=== PATIENT | female | born 1975 | race Caucasian/White ===

== ENCOUNTER 2017-12-28 13:37 | Emergency (ER) | payer OTHER, MEDICAID, SELFPAY ==
[2017-12-28 13:47] VITALS: BP 162/93; PULSE 107; RESP 19; TEMP 36.7; O2SAT 96; BMI 35.2
--- NOTE | 2017-12-28 14:23 | ED.ABDPAIN ---
HPI - Abdominal Pain <Tania ClayLUDIN sosaP-BC - Last Filed: 12/28/17 19:07> General Chief Complaint: Abdominal Pain Stated Complaint: diarrhea, N/V Time Seen by Provider: 12/28/17 13:53 Source: patient Mode of arrival: ambulatory Limitations: no limitations History of Present Illness HPI narrative: Patient presents with chief complaint of abdominal pain, vomiting, diarrhea. She states she has Crohn's disease not her Crohn's is acting up. She states she has had several episodes of watery diarrhea today. She states she was seen at would be last week where she was prescribed oxycodone. She states that it was not enough. She has not followed up with her primary care doctor or her GI doctor at this point time. She denies fevers, cough, congestion chest pain or shortness of breath. She denies fevers. She states that this pain is consistent with her Crohn's disease. She denies urinary symptoms, denies flank pain. She states that she was seen at an outside facility approximately 7 days ago. Related Data Previous Rx's Medication Instructions Recorded oxycodone-acetaminophen [Percocet] 2 tab PO Q4-6H PRN #10 tab 12/28/17 Allergies Allergy/AdvReac Type Severity Reaction Status Date / Time clarithromycin Allergy Severe RASH Unverified 08/27/17 12:21 [CLARITHROMYCIN] gentamicin [GENTAMICIN] Allergy Severe ANAPHYLAXIS Unverified 08/27/17 12:21 ketorolac [KETOROLAC] Allergy Severe RASH Unverified 08/27/17 12:21 Penicillins [PENICILLINS] Allergy Severe ANAPHYLAXIS Unverified 08/27/17 12:21 Sulfa (Sulfonamide Allergy Severe HIVES Unverified 08/27/17 12:21 Antibiotics) [SULFA (SULFONAMIDE ANTIBIOTICS)] vancomycin [VANCOMYCIN] Allergy Severe ANAPHYLAXIS Unverified 08/27/17 12:21 venom-honey bee Allergy Severe ANAPHYLAXIS Unverified 08/27/17 12:21 [BEE VENOM (HONEY BEE)] Iodinated Contrast- Oral and Allergy Intermediate ITCHING Unverified 08/27/17 12:21 IV Dye [IODINATED CONTRAST MEDIA - IV DYE] nicotine [NICOTINE] Allergy Unknown ITCHING Unverified 08/27/17 12:21 ALL OVER, BURNING AT SITE OF PATCH morphine [MORPHINE] AdvReac Intermediate nasuea Unverified 08/27/17 12:21 bioxen Allergy Severe Uncoded 08/27/17 12:21 Review of Systems <Tania FACUNDO Boles-BC - Last Filed: 12/28/17 19:07> Review of Systems GENERAL: Denies chills, fatigue, malaise, fever, sweats. HEENT: Denies sinus pain, ear pain, sore throat, difficulty swallowing, dizziness. RESPIRATORY: Denies dyspnea, cough, wheezing, hemoptysis, sputum. CARDIOVASCULAR: Denies chest pain, palpitations, orthopnea, edema, GASTROINTESTINAL: See HPI : Denies dysuria, frequency, incontinence, hematuria, urinary retention. MUSCULOSKELETAL: denies weakness, joint pain, or bony pain SKIN: Denies rash, skin lesions, or other NEUROLOGIC: Denies weakness, headache, numbness, change in speech, confusion, seizures, incoordination. PSYCHIATRIC: No concerning psychosocial issues. 12 point review of systems is negative except for those stated above Exam <FACUNDO Titus-BC - Last Filed: 12/28/17 19:07> Narrative Exam Narrative: GENERAL: Obese patient lying on stretcher. HEAD: Atraumatic. Normocephalic. No temporal or scalp tenderness. EYES: Pupils equal round and reactive. Extraocular motions intact. No scleral icterus. No injection or drainage. ENT: Nose without bleeding, purulent drainage or septal hematoma. Throat without erythema, tonsillar hypertrophy or exudate. Uvula midline. Airway patent. NECK: Trachea midline. No JVD or lymphadenopathy. Supple, nontender, no meningeal signs. CARDIOVASCULAR: Regular rate and rhythm without murmurs, gallops, or rubs. RESPIRATORY: Clear to auscultation. Breath sounds equal bilaterally. No wheezes, rales, or rhonchi. GASTROINTESTINAL: Abdomen obese. Positive bowel sounds all quadrants. No guarding, abdomen nonrigid. Patient has diffuse pain to palpation over entire abdomen. No CVA tenderness bilaterally. No pain at McBurney's point. No pulsatile mass palpated. EXTREMITIES: No clubbing, cyanosis, or edema. No joint tenderness, effusion, or edema noted. BACK: Nontender without deformity or crepitance. No flank tenderness. NEURO: AOx3. SKIN: No rash or erythema. Initial Vital Signs Initial Vital Signs: Vital Signs Temperature 98.0 F 12/28/17 13:47 Pulse Rate 107 H 12/28/17 13:47 Respiratory Rate 19 12/28/17 13:47 Blood Pressure 162/93 H 12/28/17 13:47 Pulse Oximetry 96 12/28/17 13:47 <Narendra Pelletier DO - Last Filed: 12/29/17 09:27> Initial Vital Signs Initial Vital Signs: Vital Signs Temperature 98.0 F 12/28/17 13:47 Pulse Rate 107 H 12/28/17 13:47 Respiratory Rate 19 12/28/17 13:47 Blood Pressure 162/93 H 12/28/17 13:47 Pulse Oximetry 96 12/28/17 13:47 Course <FACUNDO Titus-BC - Last Filed: 12/28/17 19:07> Additional Information: Records were obtained from [facility] which illustrate that the patient was seen there 2 days ago rather than 7 days ago. She was discharged from there with 15 of Percocet. I went back in and she remembered that she had a more recent visit than the previous week. She states that she has used all the Percocet from her visit 2 days ago, but she has plenty of nausea medication that works well for her. She has not followed up with her primary care physician or a GI physician. She states she was seen by pain management, who states she should be on a fentanyl patch. Patient does not want a CT scan today, as she states she has ?had plenty. Orders Ordered: Discontinued Medications Hydromorphone HCl (Dilaudid) 0.5 mg IV NOW ONE Stop: 12/28/17 14:52 Last Admin: 12/28/17 15:01 Dose: 0.5 mg Sodium Chloride (Normal Saline 0.9%) 1,000 mls @ 150 mls/hr IV CONT CAROL Last Infusion: 12/28/17 16:23 Dose: 150 mls/hr Infusion: 12/28/17 16:21 Dose: 0 mls/hr Admin: 12/28/17 15:01 Dose: 150 mls/hr Ondansetron HCl (Zofran) 4 mg IV NOW ONE Stop: 12/28/17 14:39 Last Admin: 12/28/17 15:01 Dose: 4 mg Ondansetron HCl (Zofran) 4 mg IV NOW ONE Stop: 12/28/17 15:46 Last Admin: 12/28/17 15:55 Dose: 4 mg Oxycodone/Acetaminophen (Percocet 5/325) 2 tab PO NOW ONE Stop: 12/28/17 15:41 Last Admin: 12/28/17 15:54 Dose: 2 tab Vital Signs - 8 hr 12/28/17 13:47 12/28/17 14:55 12/28/17 16:00 Temperature 98.0 F 97.5 F L 97.6 F Pulse Rate 107 H 97 H 97 H Respiratory Rate 19 20 16 Blood Pressure 162/93 H Blood Pressure [Left Wrist] 131/95 H 137/96 H Pulse Oximetry 96 96 96 <Narendra Pelletier DO - Last Filed: 12/29/17 09:27> Orders Ordered: Discontinued Medications Hydromorphone HCl (Dilaudid) 0.5 mg IV NOW ONE Stop: 12/28/17 14:52 Last Admin: 12/28/17 15:01 Dose: 0.5 mg Sodium Chloride (Normal Saline 0.9%) 1,000 mls @ 150 mls/hr IV CONT CAROL Last Infusion: 12/28/17 16:23 Dose: 150 mls/hr Infusion: 12/28/17 16:21 Dose: 0 mls/hr Admin: 12/28/17 15:01 Dose: 150 mls/hr Ondansetron HCl (Zofran) 4 mg IV NOW ONE Stop: 12/28/17 14:39 Last Admin: 12/28/17 15:01 Dose: 4 mg Ondansetron HCl (Zofran) 4 mg IV NOW ONE Stop: 12/28/17 15:46 Last Admin: 12/28/17 15:55 Dose: 4 mg Oxycodone/Acetaminophen (Percocet 5/325) 2 tab PO NOW ONE Stop: 12/28/17 15:41 Last Admin: 12/28/17 15:54 Dose: 2 tab Vital Signs - 8 hr 12/28/17 13:47 12/28/17 14:55 12/28/17 16:00 Temperature 98.0 F 97.5 F L 97.6 F Pulse Rate 107 H 97 H 97 H Respiratory Rate 19 20 16 Blood Pressure 162/93 H Blood Pressure [Left Wrist] 131/95 H 137/96 H Pulse Oximetry 96 96 96 MDM - Abdominal Pain <Tania Boles, RESEARCH INSTRUMENTATION TECHNICIAN-BC - Last Filed: 12/28/17 19:07> Lab Data Result diagrams: 12/28/17 13:55 12/28/17 13:55 Lab Results 12/28/17 12/28/17 12/28/17 Range/Units 13:55 13:55 14:20 WBC 11.1 H (4.5-11.0) X10^3/uL RBC 4.78 (4.0-5.2) X10^6/uL Hgb 14.2 (12.0-16.0) g/dL Hct 42.2 (36-46) % MCV 88.2 (80-100) fL MCH 29.7 (26-34) PG MCHC 33.6 (30-36) % RDW 14.5 (11.6-14.8) % Plt Count 278 (150-400) X10^3/uL Neut % (Auto) 90.1 H (50-75) % Lymph % (Auto) 7.8 L (25-40) % Fisher % (Auto) 1.5 L (3-14) % Eos % (Auto) 0.3 L (2-4) % Baso % (Auto) 0.3 (0-2) % Neut # (Auto) 06536 H (1171-3900) /uL Sodium 140 (137-145) mmol/L Potassium 4.4 (3.4-5.1) mmol/L Chloride 105 (98-107) mmol/L Carbon Dioxide 24 (22-32) mmol/L BUN 15 (7-17) mg/dL Creatinine 1.00 (0.52-1.04) mg/dL Estimated GFR > 60.0 (>60) mL/min BUN/Creatinine Ratio 15.0 (6-22) Glucose 133 H (70-100) mg/dL Calcium 10.0 (8.4-10.2) mg/dL Total Bilirubin 0.3 (0.2-1.3) mg/dL AST 34 (14-36) IU/L ALT 56 H (9-52) IU/L Alkaline Phosphatase 114 (38-126) U/L Total Protein 7.4 (6.3-8.2) g/dL Albumin 4.3 (3.5-5.0) g/dL Globulin 3.1 (1.7-4.1) g/dL Albumin/Globulin Ratio 1.4 (1.0-2.8) Lipase 43 (23-300) U/L Urine RBC None seen (0-5/HPF) Urine WBC 1-5/hpf (0-5/HPF) Ur Squamous Epith Cells 5-10 /hpf H Amorphous Sediment 1+ Urine Bacteria Occasional (0-1) (None) Ur Culture Indicated? Cult not indicated Micro UA Comment Not Reportable Point of care testing: Urine Dip Bedside Urine Glucose Negative Bedside Urine Bilirubin - Negative Bedside Urine Ketone - Negative Urine Specific [place] 1.020 Bedside Urine Occult Blood - Negative Bedside Urine pH 6.0 Bedside Urine Protein - Negative Bedside Urine Urobilinogen - Negative Bedside Urine Nitrite - Negative Bedside Urine Leukocytes +/- 15 Esterase MDM Narrative Medical decision making narrative: Patient presents with chief complaint of abdominal pain, vomiting and diarrhea that she believes is due to her Crohn's disease. Patient does not want imaging done today, and does not have an acute abdomen given her exam. She was given fluids, nausea medication and pain medication the emergency department. I gave her a small prescription for pain medication in order for her to follow up with her primary care physician or her GI physician. Patient expressed gratitude and had no questions or concerns upon discharge from the emergency department today. <Narendra Pelletier, DO - Last Filed: 12/29/17 09:27> Lab Data Lab Results 12/28/17 12/28/17 12/28/17 Range/Units 13:55 13:55 14:20 WBC 11.1 H (4.5-11.0) X10^3/uL RBC 4.78 (4.0-5.2) X10^6/uL Hgb 14.2 (12.0-16.0) g/dL Hct 42.2 (36-46) % MCV 88.2 (80-100) fL MCH 29.7 (26-34) PG MCHC 33.6 (30-36) % RDW 14.5 (11.6-14.8) % Plt Count 278 (150-400) X10^3/uL Neut % (Auto) 90.1 H (50-75) % Lymph % (Auto) 7.8 L (25-40) % Fisher % (Auto) 1.5 L (3-14) % Eos % (Auto) 0.3 L (2-4) % Baso % (Auto) 0.3 (0-2) % Neut # (Auto) 90500 H (0460-4095) /uL Sodium 140 (137-145) mmol/L Potassium 4.4 (3.4-5.1) mmol/L Chloride 105 (98-107) mmol/L Carbon Dioxide 24 (22-32) mmol/L BUN 15 (7-17) mg/dL Creatinine 1.00 (0.52-1.04) mg/dL Estimated GFR > 60.0 (>60) mL/min BUN/Creatinine Ratio 15.0 (6-22) Glucose 133 H (70-100) mg/dL Calcium 10.0 (8.4-10.2) mg/dL Total Bilirubin 0.3 (0.2-1.3) mg/dL AST 34 (14-36) IU/L ALT 56 H (9-52) IU/L Alkaline Phosphatase 114 (38-126) U/L Total Protein 7.4 (6.3-8.2) g/dL Albumin 4.3 (3.5-5.0) g/dL Globulin 3.1 (1.7-4.1) g/dL Albumin/Globulin Ratio 1.4 (1.0-2.8) Lipase 43 (23-300) U/L Urine RBC None seen (0-5/HPF) Urine WBC 1-5/hpf (0-5/HPF) Ur Squamous Epith Cells 5-10 /hpf H Amorphous Sediment 1+ Urine Bacteria Occasional (0-1) (None) Ur Culture Indicated? Cult not indicated Micro UA Comment Not Reportable Point of care testing: Urine Dip Bedside Urine Glucose Negative Bedside Urine Bilirubin - Negative Bedside Urine Ketone - Negative Urine Specific [place] 1.020 Bedside Urine Occult Blood - Negative Bedside Urine pH 6.0 Bedside Urine Protein - Negative Bedside Urine Urobilinogen - Negative Bedside Urine Nitrite - Negative Bedside Urine Leukocytes +/- 15 Esterase Discharge Plan Departure Patient Disposition: Home, Self-Care Clinical Impression: Abdominal pain Discharge Date/Time: 12/28/17 16:20 Interventions: ED Discharge Assessment Last Done: 12/28/17 16:19 Instructions: DI for Abdominal Pain-Adult Activity Restrictions/Additional Instructions: I have given you a small prescription for Percocet. Please follow-up with your primary care provider or GI provider. Come back to the emergency department for any chest pain, shortness of breath, passing out or urgent matters. I would like you to push hydration. Your lab work and urine looks good today. Prescriptions: New oxycodone-acetaminophen [Percocet] 5-325 mg tablet 2 tab PO Q4-6H PRN (Reason: pain) Qty: 10 RF: 0 <Narendra Pelletier DO - Last Filed: 12/29/17 09:27> [facility] Attending Delfin Attestation: I was immediately available in the department for consultation. Documentation has been reviewed. I agree with assessment and plan.
[2017-12-28 14:24] LABS: Add Manual Diff / Slide Review NO; Basophils Percent Auto 0.3 % (0-2); Eosinophils Percent Auto 0.3 % (2-4); Hematocrit 42.2 % (36-46); Hemoglobin 14.2 g/dL (12.0-16.0); Lymphocytes Percent Auto 7.8 % (25-40); Mean Corpuscular HGB Conc 33.6 % (30-36); Mean Corpuscular Hemoglobin 29.7 PG (26-34); Mean Corpuscular Volume 88.2 fL (80-100); Monocytes Percent Auto 1.5 % (3-14); Neutrophils Absolute Auto 10100 /uL (3000-5900); Neutrophils Percent Auto 90.1 % (50-75); Platelet Count 278 X10^3/uL (150-400); Red Blood Cell Count 4.78 X10^6/uL (4.0-5.2); Red Cell Distribution Width 14.5 % (11.6-14.8); White Blood Cell Count 11.1 X10^3/uL (4.5-11.0)
[2017-12-28 14:28] LABS: Alanine Aminotransferase 56 IU/L (9-52); Albumin 4.3 g/dL (3.5-5.0); Albumin Globulin Ratio 1.4 (1.0-2.8); Alkaline Phosphatase 114 U/L (38-126); Aspartate Aminotransferase 34 IU/L (14-36); Bilirubin Total 0.3 mg/dL (0.2-1.3); Blood Urea Nitrogen 15 mg/dL (7-17); Carbon Dioxide 24 mmol/L (22-32); Chloride 105 mmol/L (98-107); Estimated Glomerular Filt Rate > 60.0 mL/min (>60); Globulin 3.1 g/dL (1.7-4.1); Glucose 133 mg/dL (70-100); HEMOLYSIS < 15 (0-50); Lipase 43 U/L (23-300); Potassium 4.4 mmol/L (3.4-5.1); Sodium 140 mmol/L (137-145); Total Protein 7.4 g/dL (6.3-8.2)
[2017-12-28 14:55] VITALS: BP 131/95; PULSE 97; RESP 20; TEMP 36.4; O2SAT 96
[2017-12-28] MEDS: ONDANSETRON 4 MG/2 ML INJ IV ×2 (15:01→15:55)
[2017-12-28] MEDS: HYDROMORPHONE 1 MG INJ 0.5 MG IV (15:01)
[2017-12-28] MEDS: SODIUM CHLORIDE 0.9% 1,000 ML 150 ML IV (15:01)
[2017-12-28 15:13] LABS: RBC Urine None Seen (0-5/HPF); WBC Urine 1-5/HPF (0-5/HPF)
[2017-12-28 15:14] LABS: Amorphous Sediment Urine 1+; Bacteria Urine Occasional (0-1); Culture Indicated Urine Cult Not Indicated; Squamous Epithelial Cell Urine 5-10 /HPF
[2017-12-28] MEDS: OXYCODONE/ACETAMINOPHEN 5/325 TABLET 2 TAB PO (15:54)
[2017-12-28 16:00] VITALS: BP 137/96; PULSE 97; RESP 16; TEMP 36.4; O2SAT 96
== END 2017-12-28 16:20 | disposition home or self-care (01) ==
PROVIDERS: Emergency Provider Nurse Practitioner Family; Family Provider Physician Assistant Medical; PCP Physician Assistant Medical
DX: R10.9 Unspecified abdominal pain (principal)
CPT/HCPCS: 80053; 81003; 81015; 83690; 85025; 96361; 96374; 96375; 96376; 99283; 99284; J1170; J2405

== ENCOUNTER 2020-01-13 20:38 | Emergency (ER) | payer OTHER, MEDICAID, SELFPAY ==
[2020-01-13 20:45] VITALS: BP 145/80; PULSE 102; RESP 15; TEMP 36.9; O2SAT 98; BMI 33.2
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
[2020-01-13] MEDS: HYDROCODONE/ACET 5/325 TABLET 1 TAB PO (21:25)
[2020-01-13] MEDS: ONDANSETRON 4 MG ODT SL (21:25)
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
[2020-01-13 22:22] VITALS: BP 114/75; PULSE 72; RESP 12; O2SAT 97
== END 2020-01-13 22:24 | disposition home or self-care (01) ==
PROVIDERS: Emergency Provider Emergency Medicine; Family Provider Physician Assistant Medical; PCP Physician Assistant Medical
DX: M25.562 Pain in left knee (principal); M79.642 Pain in left hand; M25.512 Pain in left shoulder; V89.2XXA Person injured in unspecified motor-vehicle accident, traffic, initial encounter
CPT/HCPCS: 71045; 73110; 73562; 99283